=== PATIENT | male | born 1980 | race African-American/Black ===

== ENCOUNTER 2016-09-17 09:34 | Emergency (ER) | payer MEDICAID ==
[2016-09-17] MEDS ORDERED: ACETAMINOPHEN 325 MG TAB GT ONE (09:42)
[2016-09-17] MEDS ORDERED: MEROPENEM 500 MG in SODIUM CHL 0.9% 50ML MIN-BAG+ 50 ML IVPB ONE (10:45)
[2016-09-17] MEDS ORDERED: methylPREDNISolone SODIUM SUC 125 MG/2 ML VIAL IV ONE (10:46)
[2016-09-17] MEDS ORDERED: SODIUM CHLORIDE 0.9% 1000ML 500 ML IVS ONE (10:48)
--- NOTE | 2016-09-17 10:50 | RAD ---
PROCEDURE: XR CHEST 1 VIEW HISTORY: low pulse ox on vent COMPARISON: None TECHNIQUE: Single projection of the chest was done. FINDINGS: There is presence of a tracheostomy and a dual-chamber left-sided pacemaker. There is diffuse bilateral mid and lower lung zone infiltrates and probable tiny right-sided pleural effusion . There are no pneumothoraces The cardiomediastinal silhouette is unremarkable for patient's age and sex. IMPRESSION: There is diffuse bilateral mid and lower lung zone infiltrates and probable tiny right-sided pleural effusion, suspicious for underlying changes of volume overload. Superimposed infectious process is difficult to exclude . Electronically signed by: Cheko Zapien MD 09/17/2016 10:49 AM CDT Workstation: [id number]
[2016-09-17] MEDS ORDERED: SODIUM CHL 0.9% 50ML MIN-BAG+ 50 ML IVPB ONE (11:23)
[2016-09-17] MEDS ORDERED: MEROPENEM 500 MG VIAL IVPB ONE (11:23)
[2016-09-17] MEDS ORDERED: HYDROmorphone HCL INJ 2 MG/ML VIAL IV ONE ×2 (12:58→17:18)
--- NOTE | 2016-09-17 14:22 | CT ---
PROCEDURE: CTA Chest HISTORY: PE protocol, hypoxia, vent, ddimer Indication: Same as above Comparison: Six chest x-ray done on the same day Technique: CT of the chest was done with intravenous contrast followed by CT angiography of the pulmonary arteries. Coronal, Sagittal and 3D volumetric MIP reconstructions were generated from the acquired data. The patient was injected with contrast intravenously, without any documented immediate adverse reactions. This exam was performed according to our departmental dose-optimization program, which includes automated exposure control, adjustment of the mA and/or KV according to the patient's size and/or use of iterative reconstruction technique. FINDINGS: There is no visualization of filling defects in the main pulmonary trunk, main right and left pulmonary arteries or their lower order branches to suggest pulmonary embolism. The bilateral main pulmonary arteries are normal in caliber. There is no evidence of interventricular septal deviation or filling defects in the cardiac chambers. There is a tracheostomy. There is presence of large bilateral lower lobe infiltrate/atelectasis and presence of diffuse reticular nodular infiltrates in the remainder of the bilateral lung block. There is presence of trace bilateral pleural effusions. There are no discrete of multiple pathologically enlarged lymph nodes in the mediastinum Benign subcentimeter calcified granuloma is seen in the left lower lobe of the lung There are no pneumothoraces The trachea, bilateral mainstem bronchi and the bilateral main segmental bronchi are patent without any intraluminal mass lesions. There is no gross evidence of clinically significant thoracic aortic aneurysm or thoracic aortic dissection. There is no clinically significant pericardial effusion. The thoracic bony rib cage appears grossly unremarkable. Limited evaluation of the evaluated upper abdomen does not show any gross abnormalities. IMPRESSION: There is no pulmonary embolism There is presence of large bilateral lower lobe infiltrate/atelectasis and presence of diffuse reticular nodular infiltrates in the remainder of the bilateral lung block. There is presence of trace bilateral pleural effusions. There are no discrete of multiple pathologically enlarged lymph nodes in the mediastinum Electronically signed by: Cheko Zapien MD 09/17/2016 2:22 PM CDT Workstation: [facility]
[2016-09-17] MEDS ORDERED: SODIUM CHLORIDE 0.9% 250ML 250 ML ONE ×2 (14:46→17:00)
[2016-09-17] MEDS ORDERED: VANCOMYCIN HCL INJ 1,000 MG in SODIUM CHLORIDE 0.9% 250ML 250 ML IVPB ONE (15:42)
--- NOTE | 2016-09-17 15:54 | ED.PDOC ---
History of Present Illness - General Chief Complaint: Respiratory Problem Stated Complaint: decreased Oxygen saturation Time Seen by Provider: 09/17/16 09:36 Source: patient, EMS notes reviewed, group home records Exam Limitations: no limitations - History of Present Illness Initial Comments: the patient is a 36-year-old -Cym[place] male presenting to the emergency room secondary to relative hypoxia. the patient is a long-term vent patient with quadriplegia. He is alert and oriented and interactive. patient has had Rocephin and Levaquin for approximately the last week at his long-term care facility in treatment of a pneumonia. Over the last day apparently his oxygen requirements have been increasing. He has also developed a significant fever over the last 24 hours. the patient has been been feeling more tired and weak than normal. he is currently requiring around 60% FiO2 to maintain adequate oxygen saturation. the patient does have skin breakdown posteriorly. He has an area that is approximately 2.5 x 4 half inches over his upper sacrum that appears to be a stage II ulcer. He has a 1-1/2 by three-quarter inch area just below his left gluteal fold that is a stage II ulcer. he also has a similar sized area to his right gluteal fold. his left heel does have a 1-1/4 inch unruptured blister at this point. wounds were redressed here in the emergency room. Attention to : the wounds description given by me over the phone was in error. Timing/Duration: unsure Severity: moderate Improving Factors: nothing Worsening Factors: nothing Associated Symptoms: diaphoresis, fever/chills, loss of appetite, malaise, shortness of breath Allergies/Adverse Reactions: Allergies Codeine Adverse Reaction (Verified 09/17/16 09:50) Review of Systems - Review of Systems Constitutional: States: fever, malaise, weakness EENTM: States: no symptoms reported Respiratory: States: short of breath Cardiology: States: no symptoms reported Gastrointestinal/Abdominal: States: no symptoms reported Genitourinary: States: no symptoms reported Musculoskeletal: States: no symptoms reported - hronic changes only Skin: States: other - decubitus ulcers Neurological: States: see HPI All other Systems: No Change from Baseline Past Medical History (General) - Patient Medical History Hx Cardiac Disorders: Yes - A-fib - Social History Hx Tobacco Use: No Hx Alcohol Use: No Hx Substance Use: No Hx Substance Use Treatment: No Hx Depression: No - Activities of Daily Living Long Term/Assisted Living (if applicable):: [facility] - Female History Patient is a Female of Child Bearing Age (10 -59 yrs old): No Patient : No Family Medical History - Family History Mother Family History: Unknown Physical Exam - Physical Exam General Appearance: Alert, No apparent distress Eye Exam: bilateral normal Ears, Nose, Throat: hearing grossly normal, normal ENT inspection - Gold teeth, normal pharynx - mouth is mildly dry Neck: supple - racheostomy is in place. Respiratory: crackles - ilateral bases with decreased breath sounds Cardiovascular/Chest: normal peripheral pulses, no edema, tachycardia - sinus tachycardiaaccording to telemetry Peripheral Pulses: radial,right: 2+, radial,left: 2+, dorsalis pedis,right: 2+, dorsalis pedis,left: 2+ Gastrointestinal/Abdominal: non tender, soft Rectal Exam: other - poor tone. Stool is present in the vault. Back Exam: other - scarring from previous ulcers. Extremity: no pedal edema, normal capillary refill, other - asting from quadriplegia. Neurologic: alert, normal mood/affect, oriented x 3 Skin Exam: normal color, other - see history of present illness Comments: Vital Signs - 24 hr 09/17/16 09/17/16 09/17/16 09:35 09:49 09:54 Temperature 101.2 F H Pulse Rate [ 112 H pulse ox] Respiratory 18 18 18 Rate Respiratory 18 Rate [Volume Control Data] Blood Pressure 87/46 [Left Arm] O2 Sat by Pulse 97 97 Oximetry 09/17/16 09/17/16 09/17/16 10:48 11:00 11:48 Temperature 99.8 F H Pulse Rate [ 119 H 117 H pulse ox] Respiratory 18 18 Rate Respiratory Rate [Volume Control Data] Blood Pressure 88/55 80/42 [Left Arm] O2 Sat by Pulse 98 99 96 Oximetry 09/17/16 09/17/16 09/17/16 14:55 15:03 15:18 Temperature 97.8 F 96.9 F L 96.4 F L Pulse Rate [ 96 H 99 H 73 pulse ox] Respiratory 14 14 14 Rate Respiratory Rate [Volume Control Data] Blood Pressure 114/63 124/74 150/89 [Left Arm] O2 Sat by Pulse 96 99 99 Oximetry Progress - Progress Progress: 09/17/16 16:05 he patient is a 36-year-old -Cym[place] male that is a quadriplegic and ventilator dependent presenting with bilateral lower lung ventilator associated pneumonia having failed outpatient treatment with Rocephin and Levaquin. The patient is being transferred for higher level of care. Blood and sputum cultures have been performed. The patient is being started on meropenem and vancomycin. Additionally the patient has anemia of an unknown source. Given his shortness of breath, current infection burden and hypoxia issues we are proceeding with his first unit of packed red blood cells. he patient has received a dose of Tylenol in a small dose of Solu-Medrol prior to transfusion. Decubitus wounds were redressed. the patient is tachycardic but looking back over his vitals for the last couple of weeks, it appears his baseline heart rate is around 100. the patient is mentating well. We are transferring for higher level of care. Dr Hood's help is greatly appreciated. - Results/Orders Results/Orders: 09/17/16 09:37 Telemetry .CONTINUOUS 09/17/16 09:43 SPUTUM CULTURE Stat 09/17/16 10:25 BLOOD CULTURE Stat 09/17/16 10:37 URINE CULTURE W/COLONY COUNT Stat 09/17/16 10:48 Hold Metformin x 48Hrs [id number] 09/17/16 15:42 Vancomycin HCl Inj 1,000 mg Sodium Chloride 0.9% 250Ml [NS 250ml] 250 ml IVPB ONCE Laboratory Results - last 24 hr 09/17/16 09/17/16 09/17/16 10:25 10:25 10:25 WBC 25.2 H* RBC 2.46 L Hgb 6.9 L* Hct 21.4 L MCV 87.0 MCH 28.0 MCHC 32.4 L RDW 18.6 H Plt Count 372 MPV 8.4 Absolute Neuts (auto) 23.80 H Absolute Lymphs (auto) 0.50 L Absolute Monos (auto) 0.80 Absolute Eos (auto) 0.00 Absolute Basos (auto) 0.00 Neutrophils % 94.6 H Neutrophils % (Manual) 42.0 Lymphocytes % 2.2 L Lymphocytes % (Manual) 1.0 Monocytes % 3.1 Monocytes % (Manual) 0.0 Eosinophils % 0.0 L Basophils % 0.1 Band Neutrophils 55.0 Metamyelocytes 2.0 Hypochromia 2+ Platelet Estimate Normal Anisocytosis 2+ PT 16.8 H INR 1.490 PTT (SP) 28.7 D-Dimer, Quantitative 2059 H* Sodium 131 L Potassium 4.0 Chloride 88 L Carbon Dioxide 30 Anion Gap 17.0 BUN 41 H Creatinine 0.47 L BUN/Creatinine Ratio 87.2 H Random Glucose 126 H Serum Osmolality 274.3 L Lactic Acid Calcium 9.5 Magnesium 2.0 Total Bilirubin 0.6 AST 27 ALT 56 Alkaline Phosphatase 95 Creatine Kinase 29 L CK-MB (CK-2) 1.1 CK-MB (CK-2) % Not Reportable Troponin I < 0.02 B-Natriuretic Peptide 60.3 Serum Total Protein 7.8 Albumin 2.8 L Globulin 5.0 H Albumin/Globulin Ratio 0.6 L Urine Color Urine Appearance Urine pH Ur Specific Tribune Urine Protein Urine Glucose (UA) Urine Ketones Urine Blood Urine Nitrite Urine Bilirubin Urine Urobilinogen Ur Leukocyte Esterase Urine RBC Urine WBC Ur Epithelial Cells Amorphous Sediment Urine Bacteria Stool Occult Blood Patient ABO/Rh Antibody Screen Crossmatch 09/17/16 09/17/16 09/17/16 10:25 10:37 10:45 WBC RBC Hgb Hct MCV MCH MCHC RDW Plt Count MPV Absolute Neuts (auto) Absolute Lymphs (auto) Absolute Monos (auto) Absolute Eos (auto) Absolute Basos (auto) Neutrophils % Neutrophils % (Manual) Lymphocytes % Lymphocytes % (Manual) Monocytes % Monocytes % (Manual) Eosinophils % Basophils % Band Neutrophils Metamyelocytes Hypochromia Platelet Estimate Anisocytosis PT INR PTT (SP) D-Dimer, Quantitative Sodium Potassium Chloride Carbon Dioxide Anion Gap BUN Creatinine BUN/Creatinine Ratio Random Glucose Serum Osmolality Lactic Acid 1.6 Calcium Magnesium Total Bilirubin AST ALT Alkaline Phosphatase Creatine Kinase CK-MB (CK-2) CK-MB (CK-2) % Troponin I B-Natriuretic Peptide Serum Total Protein Albumin Globulin Albumin/Globulin Ratio Urine Color Yellow Urine Appearance Clear Urine pH 5.5 Ur Specific Tribune <= 1.005 Urine Protein Negative Urine Glucose (UA) Negative Urine Ketones Negative Urine Blood Negative Urine Nitrite Negative Urine Bilirubin Negative Urine Urobilinogen 0.2 Ur Leukocyte Esterase Trace H Urine RBC 1-3 Urine WBC 10-20 H Ur Epithelial Cells 0 Amorphous Sediment Trace Urine Bacteria 3+ H Stool Occult Blood Patient ABO/Rh O POSITIVE Antibody Screen Negative Crossmatch See Detail 09/17/16 13:54 WBC RBC Hgb Hct MCV MCH MCHC RDW Plt Count MPV Absolute Neuts (auto) Absolute Lymphs (auto) Absolute Monos (auto) Absolute Eos (auto) Absolute Basos (auto) Neutrophils % Neutrophils % (Manual) Lymphocytes % Lymphocytes % (Manual) Monocytes % Monocytes % (Manual) Eosinophils % Basophils % Band Neutrophils Metamyelocytes Hypochromia Platelet Estimate Anisocytosis PT INR PTT (SP) D-Dimer, Quantitative Sodium Potassium Chloride Carbon Dioxide Anion Gap BUN Creatinine BUN/Creatinine Ratio Random Glucose Serum Osmolality Lactic Acid Calcium Magnesium Total Bilirubin AST ALT Alkaline Phosphatase Creatine Kinase CK-MB (CK-2) CK-MB (CK-2) % Troponin I B-Natriuretic Peptide Serum Total Protein Albumin Globulin Albumin/Globulin Ratio Urine Color Urine Appearance Urine pH Ur Specific Tribune Urine Protein Urine Glucose (UA) Urine Ketones Urine Blood Urine Nitrite Urine Bilirubin Urine Urobilinogen Ur Leukocyte Esterase Urine RBC Urine WBC Ur Epithelial Cells Amorphous Sediment Urine Bacteria Stool Occult Blood Negative Patient ABO/Rh Antibody Screen Crossmatch chest x-ray shows bilateral lower infiltrates. CT angiogram of the chest shows no evidence of pulmonary embolus. He does have large bilateral lower lobe infiltrates and mild diffuse reticular nodular infiltrates and the remainder of bilateral lung block. Very small effusions. Departure - Departure Clinical Impression: Pneumonia, ventilator associated Disposition: Transfer to Hospital Condition: Serious Referrals: GENTRY ULRICH [Primary Care Provider] - 1-2 Weeks Transfer to Outside Facility - Transfer Information Accepting Provider:: DR Hood Accepting Facility: [facility] Reason for Transfer: specialized care not available
[2016-09-17 16:30] VITALS: BP 151/102; TEMP 95.1
[2016-09-17] MEDS ORDERED: VANCOMYCIN HCL INJ 1,000 MG VIAL IVPB ONE (17:00)
[2016-09-17] MEDS: IPRATROPIUM/ALBUTEROL 3 ML VIAL NEB ONE ×2 (17:12→17:13)
[2016-09-17 17:49] VITALS: O2SAT 96
== END 2016-09-17 17:30 | disposition short-term general hospital (02) ==
LOC: ER 09:34
DX: J95.851 Ventilator associated pneumonia (principal); G82.50 Quadriplegia, unspecified; I48.91 Unspecified atrial fibrillation; L89.152 Pressure ulcer of sacral region, stage 2; L89.322 Pressure ulcer of left buttock, stage 2; L89.312 Pressure ulcer of right buttock, stage 2; L89.629 Pressure ulcer of left heel, unspecified stage; Z99.11 Dependence on respirator [ventilator] status; Z88.6 Allergy status to analgesic agent
CPT/HCPCS: 36415; 71010; 71275; 80053; 81001; 82270; 82550; 82553; 83605; 83735; 83880; 84484; 85025; 85379; 85610; 85730; 86850; 86900; 86901; 86922; 87040; 87086; 94002; 94640; 94770; J1170; J2185; J2930; J3370; J7030; J7050; J7620; P9016

== ENCOUNTER 2016-09-21 23:17 | Emergency (ER) | payer MEDICAID ==
[2016-09-21] MEDS ORDERED: HYDROmorphone HCL INJ 2 MG/ML VIAL IV ONE (23:22)
[2016-09-22] MEDS ORDERED: AMIODARONE HCL 200 MG TAB GT ONE (00:01)
[2016-09-22] MEDS ORDERED: METHOCARBAMOL 750 MG TAB GT ONE (00:01)
[2016-09-22] MEDS ORDERED: ALPRAZolam 0.25 MG TAB GT ONE (00:01)
[2016-09-22] MEDS ORDERED: IPRATROPIUM/ALBUTEROL 3 ML VIAL NEB ONE ×2 (00:08→03:40)
--- NOTE | 2016-09-22 00:33 | RAD ---
EXAM: Single view chest. INDICATION: Pneumonia. COMPARISON: Chest x-ray: 09/17/2016. FINDINGS: There are diffuse interstitial and airspace opacities, worse along the lung bases. Bilateral pleural effusions are present. The heart size is stable with a left chest wall pacemaker in place. There is no pneumothorax. A tracheostomy tube is in place. Postsurgical changes of the cervical spine are partially visualized. IMPRESSION: Diffuse interstitial and airspace opacities, likely representing pulmonary edema and/or pneumonia Electronically signed by: Biju Church MD 09/22/2016 12:33 AM CDT Workstation: [id number]
[2016-09-22] MEDS ORDERED: HYDROmorphone HCL INJ 2 MG/ML VIAL IV ONE (01:27)
--- NOTE | 2016-09-22 02:16 | ED.PDOC ---
History of Present Illness - General Source: patient Exam Limitations: clinical condition - History of Present Illness Initial Comments: The patient is a 36-year-old -E[place]ian male presenting to the emergency room from his long-term care facility. The patient was sent back from [place] to the [facility]. He had been treated for a ventilator associated pneumonia. The patient had also been treated for atrial fibrillation with rapid ventricular rate with cardioversion and had been placed on amiodarone. He is currently also on moxifloxacin for an antibiotic for pneumonia. Sepsis appears to have resolved. The patient was sent here from the [facility] immediately upon arrival secondary to swelling of the left upper extremity. They're concern was for a DVT. The patient was sent immediately in spite of being informed that we do not have ultrasound capability in the middle of the night. There are no new symptoms of a pulmonary embolus. The patient had previously had peripheral IVs in the upper extremities which is obvious. The patient himself reports that the swelling started a couple of days ago. The patient is feeling significantly better than when he was sent out earlier in the week for the pneumonia. The patient's ventilator settings have been reduced with treatment of the pneumonia. In general he does look better thanwhat I saw him earlier in the week. Timing/Duration: 24 hours Severity: mild Improving Factors: nothing Worsening Factors: nothing Associated Symptoms: cough <Ciro Goyal - Last Filed: 09/22/16 06:44> <Teetee Lopes - Last Filed: 09/22/16 09:46> - General Chief Complaint: General Stated Complaint: arm swelling possibe DVT to left arm Time Seen by Provider: 09/21/16 23:22 - History of Present Illness Allergies/Adverse Reactions: Allergies Codeine Adverse Reaction (Verified 09/17/16 09:50) Review of Systems - Review of Systems Constitutional: States: malaise EENTM: States: no symptoms reported Respiratory: States: cough, short of breath - mild Cardiology: States: no symptoms reported Gastrointestinal/Abdominal: States: no symptoms reported Genitourinary: States: no symptoms reported Musculoskeletal: States: no symptoms reported - hronic low back pain issues Skin: States: no symptoms reported - chronic sacral decubitus ulcer and heel ulcer Neurological: States: no symptoms reported - hronic changes including his quadriplegia Endocrine: States: excessive sweating - primarily with withdrawal from his opiates All other Systems: No Change from Baseline <Ciro Goyal - Last Filed: 09/22/16 06:44> Past Medical History (General) - Patient Medical History Hx Cardiac Disorders: Yes - A-fib - Vaccination History Hx Tetanus, Diphtheria Vaccination: - unknown Hx Influenza Vaccination: - unknown Hx Pneumococcal Vaccination: - unknown - Social History Hx Tobacco Use: No Hx Alcohol Use: No Hx Substance Use: No Hx Substance Use Treatment: No Hx Depression: No - Activities of Daily Living Senior Care/Assisted Living (if applicable):: [facility] - Female History Patient : No - Triage Comment ED Triage Comment: shelter states pt has just returned from [facility] and c/o left arm pain and swelling that has gotten worse throughout the day. <Ciro Goyal - Last Filed: 09/22/16 06:44> Family Medical History - Family History Mother Family History: Unknown <Ciro Goyal - Last Filed: 09/22/16 06:44> Physical Exam - Physical Exam General Appearance: Alert, Comfortable, No apparent distress Eye Exam: bilateral normal Ears, Nose, Throat: hearing grossly normal, normal ENT inspection - gold teeth Neck: non-tender, full range of motion, supple, other - tracheostomy is in place Respiratory: other - coarse breath sounds at bilateral bases. Significantly better air movement than earlier in the week. 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, alert, normal mood/affect, oriented x 3, other - quadriplegic Skin Exam: other - sacral and heel ulcers present Comments: Vital Signs - 24 hr 09/21/16 09/21/16 09/22/16 23:20 23:50 00:48 Temperature 98.6 F 98.2 F Pulse Rate [ 87 91 H monitor] Respiratory 18 16 20 Rate Blood Pressure 92/52 [Right Arm] O2 Sat by Pulse 94 L Oximetry 09/22/16 01:18 Temperature Pulse Rate [ 94 H monitor] Respiratory 20 Rate Blood Pressure [Right Arm] O2 Sat by Pulse 95 Oximetry <Ciro Goyal - Last Filed: 09/22/16 06:44> Progress - Progress Progress: 09/22/16 02:19 The patient is a 36-year-old -E[place] male presenting primarily due to left upper extremity swelling after coming back from the hospital in [place]. I do suspect that this is simply from IV infiltration at that hospital. We are awaiting venous ultrasound in the morning. The patient's respiratory status has improved since his last visit. PM medications are being given. Continue monitoring. - Results/Orders Results/Orders: Laboratory Tests 09/21/16 09/21/16 09/21/16 23:22 23:23 23:23 WBC 21.3 H* RBC 3.43 L Hgb 9.5 L Hct 30.3 L MCV 88.5 MCH 27.6 MCHC 31.3 L RDW 17.2 H Plt Count 447 H MPV 8.1 Absolute Neuts (auto) 17.10 H Absolute Lymphs (auto) 2.40 Absolute Monos (auto) 1.50 H Absolute Eos (auto) 0.20 Absolute Basos (auto) 0.10 Neutrophils % 80.1 H Neutrophils % (Manual) 64.0 Lymphocytes % 11.5 L Lymphocytes % (Manual) 17.0 Monocytes % 7.1 Monocytes % (Manual) 4.0 Eosinophils % 0.8 L Basophils % 0.5 Band Neutrophils 10.0 Eosinophils 2.0 Metamyelocytes 3.0 Hypochromia 2+ Platelet Estimate Normal Polychromasia 2+ Anisocytosis 3+ PT 14.6 H INR 1.300 PTT (SP) 29.0 D-Dimer, Quantitative 3001 H* Sodium 138 Potassium 4.4 Chloride 97 L Carbon Dioxide 31 Anion Gap 14.4 BUN 13 Creatinine < 0.40 L BUN/Creatinine Ratio 32.0 H Random Glucose 92 Serum Osmolality 275.4 Calcium 9.4 Magnesium Total Bilirubin 0.6 AST 32 ALT 91 H Alkaline Phosphatase 82 Creatine Kinase 43 CK-MB (CK-2) 1.8 CK-MB (CK-2) % Not Reportable Troponin I 0.02 B-Natriuretic Peptide 49.1 Serum Total Protein 7.6 Albumin 2.6 L Globulin 5.0 H Albumin/Globulin Ratio 0.5 L 09/21/16 23:23 WBC RBC Hgb Hct MCV MCH MCHC RDW Plt Count MPV Absolute Neuts (auto) Absolute Lymphs (auto) Absolute Monos (auto) Absolute Eos (auto) Absolute Basos (auto) Neutrophils % Neutrophils % (Manual) Lymphocytes % Lymphocytes % (Manual) Monocytes % Monocytes % (Manual) Eosinophils % Basophils % Band Neutrophils Eosinophils Metamyelocytes Hypochromia Platelet Estimate Polychromasia Anisocytosis PT INR PTT (SP) D-Dimer, Quantitative Sodium Potassium Chloride Carbon Dioxide Anion Gap BUN Creatinine BUN/Creatinine Ratio Random Glucose Serum Osmolality Calcium Magnesium 1.8 Total Bilirubin AST ALT Alkaline Phosphatase Creatine Kinase CK-MB (CK-2) CK-MB (CK-2) % Troponin I B-Natriuretic Peptide Serum Total Protein Albumin Globulin Albumin/Globulin Ratio chest x-ray shows persistent infiltrates as would be expected in this timeframe. <Ciro Goyal - Last Filed: 09/22/16 06:44> - Progress Progress: 09/22/16 09:45 ultrasound of left upper extremity shows no evidence of dvt. Will plan to d/c back to [facility]. <Teetee Lopes - Last Filed: 09/22/16 09:46> Departure <Ciro Goyal - Last Filed: 09/22/16 06:44> - Departure Time of Disposition: 09:45 Diet: resume usual diet <Teetee Lopes - Last Filed: 09/22/16 09:46> - Departure Clinical Impression: Edema Qualifiers: Edema type: unspecified Disposition: Discharge to SNF Condition: Fair Instructions: DI for Peripheral Edema, Unilateral
[2016-09-22 03:44] VITALS: TEMP 98.4
[2016-09-22] MEDS ORDERED: HYDROcodone 7.5MG/APAP 325MG 1 EA TAB PO ONE (04:01)
[2016-09-22] MEDS ORDERED: HYDROmorphone HCL 2 MG TAB ONE (06:20)
[2016-09-22] MEDS ORDERED: HYDROmorphone HCL 2 MG TAB PO ONE (06:21)
[2016-09-22] MEDS ORDERED: HYDROcodone 10MG/APAP 325MG 1 EA TAB PO ONE (09:32)
--- NOTE | 2016-09-22 09:41 | US ---
Study: Left upper extremity venous Doppler sonogram. Indication: swelling 2 days Technical: Multiplanar grayscale and Doppler sonographic images of the deep veins of the left upper extremity obtained. Findings: There is no sonographic evidence of deep venous thrombosis. The deep veins of the left upper extremity compress normally and have appropriate duplex waveforms. Normal flow augmentation is noted as well. Conclusion: 1. No sonographic evidence of deep venous thrombosis of the left upper extremity. Electronically signed by: Fermin Hanks MD 09/22/2016 9:40 AM CDT
[2016-09-22] MEDS ORDERED: ALPRAZolam 0.25 MG TAB PO ONE (10:06)
[2016-09-22 10:32] VITALS: BP 94/52; O2SAT 100
== END 2016-09-22 10:32 ==
LOC: ER 23:17
DX: R60.0 Localized edema (principal); I48.91 Unspecified atrial fibrillation; Z99.11 Dependence on respirator [ventilator] status; Z88.6 Allergy status to analgesic agent
CPT/HCPCS: 36415; 71010; 80053; 82550; 82553; 83735; 83880; 84484; 85025; 85379; 85610; 85730; 93971; 94002; 94003; 94640; 94770; J1170; J7620

== ENCOUNTER 2016-10-07 21:35 | Emergency (ER) | payer MEDICAID ==
--- NOTE | 2016-10-07 22:14 | RAD ---
EXAM: Chest,1 View CLINICAL INDICATION: 36-year-old male with decreased oxygen saturation. TECHNIQUE: Single view, AP portable chest was obtained. COMPARISON: 09/22/2016. FINDINGS: Stable cardiac and mediastinal silhouette. Heart size is normal. Pacemaker device overlies and obscures portions of the the LEFT hemithorax with leads intact at the level of the battery pack, stable in course and termination. Extensive interstitial and airspace opacification concerning for edema/ARDS, multifocal pneumonia or drug reaction the correct clinical setting. No gross pneumothoraces. Small bilateral pleural effusion. Tracheostomy tube terminates at the level of the thoracic inlet. The visualized bones are within normal limits. IMPRESSION: Extensive interstitial and airspace opacification concerning for edema/ARDS, multifocal pneumonia or drug reaction the correct clinical setting. Small bilateral pleural effusion. Please correlate with patient clinical findings and follow-up for resolution. Electronically signed by: Aruna Velasco MD 10/07/2016 10:13 PM CDT Workstation: [id number]
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
[2016-10-08] MEDS ORDERED: MORPHINE SULFATE INJ 10 MG/ML VIAL IV ONE (04:21)
[2016-10-08] MEDS ORDERED: HYDROmorphone HCL INJ 2 MG/ML VIAL IV ONE ×3 (04:25→08:28)
[2016-10-08] MEDS ORDERED: PIPERACILLIN/TAZOBACTAM 3.375 GM in SODIUM CHLORIDE 0.9% 100ML 100 ML IVPB ONE (04:32)
[2016-10-08] MEDS ORDERED: PIPERACILLIN/TAZOBACTAM 3.375 GM VIAL IVPB ONE (04:36)
[2016-10-08] MEDS ORDERED: SODIUM CHLORIDE 0.9% 100ML 100 ML IVPB ONE ×2 (04:37→05:31)
[2016-10-08] MEDS ORDERED: HYDROmorphone HCL INJ 2 MG/ML VIAL ONE (05:56)
[2016-10-08] MEDS ORDERED: VANCOMYCIN HCL INJ 1,000 MG in SODIUM CHLORIDE 0.9% 250ML 250 ML IVPB ONE (06:00)
[2016-10-08] MEDS ORDERED: VANCOMYCIN HCL INJ 1,000 MG VIAL IVPB ONE (06:18)
[2016-10-08] MEDS ORDERED: SODIUM CHLORIDE 0.9% 250ML 250 ML ONE (06:18)
[2016-10-08 08:51] VITALS: BP 117/62; TEMP 98.3; O2SAT 98
== END 2016-10-08 08:52 | disposition short-term general hospital (02) ==
LOC: ER 21:35
DX: J95.851 Ventilator associated pneumonia (principal); J96.11 Chronic respiratory failure with hypoxia; I48.2 Chronic atrial fibrillation; G82.50 Quadriplegia, unspecified; Z88.6 Allergy status to analgesic agent; Z79.899 Other long term (current) drug therapy; Z79.82 Long term (current) use of aspirin; Z79.02 Long term (current) use of antithrombotics/antiplatelets; Z93.1 Gastrostomy status; Z95.0 Presence of cardiac pacemaker; Z99.11 Dependence on respirator [ventilator] status; S14.109S Unspecified injury at unspecified level of cervical spinal cord, sequela; V89.2XXS Person injured in unspecified motor-vehicle accident, traffic, sequela
CPT/HCPCS: 36415; 36600; 71010; 80048; 82550; 82553; 82803; 82805; 83880; 84484; 85025; 87040; 93005; 94002; J1170; J2270; J2543; J3370; J7050

== ENCOUNTER 2016-10-19 15:49 | Emergency (ER) | payer MEDICAID ==
[2016-10-19] MEDS ORDERED: LIDOCAINE 2% UROJET 20 MG/ML SYG TOP ONE (16:00)
[2016-10-19] MEDS ORDERED: MORPHINE SULFATE INJ 10 MG/ML VIAL IM ONE (16:00)
[2016-10-19 16:08] VITALS: TEMP 100
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
[2016-10-19] MEDS ORDERED: ACETAMINOPHEN W/COD #3 TAB 1 EA TAB PO ONE (17:14)
[2016-10-19] MEDS ORDERED: diphenhydrAMINE HCL 12.5 MG/5 ML UD PO ONE (17:25)
[2016-10-19] MEDS ORDERED: HYDROmorphone HCL 2 MG TAB PO ONE (18:25)
[2016-10-19 18:37] VITALS: O2SAT 95
[2016-10-19 18:58] VITALS: BP 87/51
== END 2016-10-19 18:58 ==
LOC: ER 15:49
DX: S37.30XA Unspecified injury of urethra, initial encounter (principal); I48.2 Chronic atrial fibrillation; Z99.11 Dependence on respirator [ventilator] status; Z95.0 Presence of cardiac pacemaker; Z88.6 Allergy status to analgesic agent; Z79.899 Other long term (current) drug therapy; Z79.02 Long term (current) use of antithrombotics/antiplatelets; Z79.82 Long term (current) use of aspirin; X58.XXXA Exposure to other specified factors, initial encounter; Y92.129 Unspecified place in nursing home as the place of occurrence of the external cause
CPT/HCPCS: 81001; 87086; 94002; J2270; Q0163

== ENCOUNTER 2016-10-27 17:42 | Emergency (ER) | payer MEDICAID ==
--- NOTE | 2016-10-27 18:13 | RAD ---
EXAM DESCRIPTION: Chest,1 View CLINICAL HISTORY: 36 years Male s/p code COMPARISON: 10/07/2016 FINDINGS: Tracheostomy tube in place. Postsurgical changes in the cervical spine. Dual-lead pacemaker in unchanged position. Cardiac size is within normal limits. There are bilateral pulmonary infiltrates which appear slightly improved over the previous study. Suspect bilateral effusions. No pneumothorax is noted IMPRESSION: Bilateral mixed alveolar and interstitial infiltrates which may reflect pulmonary edema. This appears improved over the previous study Suspect bilateral effusions Electronically signed by: Mariia Norris 10/27/2016 6:12 PM CDT
[2016-10-27] MEDS ORDERED: FLUCONAZOLE 100 MG TAB GT ONE (18:41)
[2016-10-27] MEDS ORDERED: HYDROmorphone HCL INJ 2 MG/ML VIAL IV ONE ×2 (19:17→22:45)
[2016-10-27] MEDS ORDERED: ALPRAZolam 0.25 MG TAB GT ONE (19:18)
[2016-10-27] MEDS ORDERED: AMIODARONE HCL 200 MG TAB GT ONE (19:18)
[2016-10-27] MEDS ORDERED: BACLOFEN 10 MG TAB PO ONE (19:18)
[2016-10-27] MEDS ORDERED: IPRATROPIUM/ALBUTEROL 3 ML VIAL NEB ONE (19:19)
[2016-10-27] MEDS ORDERED: PREGABALIN 75 MG CAP PO ONE (19:19)
[2016-10-27 19:28] VITALS: O2SAT 99
--- NOTE | 2016-10-27 22:32 | ED.PDOC ---
History of Present Illness - General Chief Complaint: Cardiac Respiratory Arrest Stated Complaint: coded at NH Time Seen by Provider: 10/27/16 17:53 Source: patient Exam Limitations: no limitations - History of Present Illness Initial Comments: The patient is a 36-year-old -Thai male that is a quadriplegic and ventilator dependent. He is a resident of a long-term care facility. EMS was called on the patient due to staph starting CPR on the patient. Upon EMSs arrival the patient was alert and interacting with them. He was in no distress. He was not wanting to come to the hospital. He is oriented. He does make his own decisions primarily. He had been feeling fine prior. What he remembers before waking back up was that he was turned over on his right side having his decubitus ulcer cleaned. He reports that he does not breathe very well at all on his right side. He believes that he passed out due to the shortness of breath and that is when a code was called on him. The patient was in normal sinus rhythm upon arrival of EMS. He was oxygenating well. He was interacting well. The patient has done well since his arrival here at the emergency room. He was feeling fine prior to the event otherwise. Timing/Duration: momentarily Severity: severe Improving Factors: other Worsening Factors: nothing Associated Symptoms: denies symptoms Allergies/Adverse Reactions: Allergies Codeine Adverse Reaction (Verified 09/17/16 09:50) Home Medications: Ambulatory Orders ALPRAZolam [Xanax] 0.5 mg GT Q8HR PRN 10/08/16 Acetaminophen W/ Codeine [Tylenol w/Codeine 300-30 mg] 1 tab PO QID PRN Acetylcysteine 10 % INH BID PRN 10/08/16 Amiodarone HCl 200 mg GT BID 10/08/16 Aspirin [Aspirin EC Low Dose] 81 mg GT DAILY 10/08/16 Baclofen 10 mg GT QID 10/08/16 Bisacodyl 10 mg AK DAILY PRN 10/08/16 Bisacodyl 10 mg AK DELISA-OTH-DAY 10/08/16 Calcium Carbonate-Cholecalcife [Calcium 600 + D 600-200 mg-Unit] 1 tab GT BID Clopidogrel Bisulfate [Plavix] 75 mg GT DAILY 10/08/16 Diphenhydramine HCl 12.5 mg GT Q6HR PRN 10/08/16 Famotidine 20 mg GT BID 10/08/16 Hydromorphone HCl [Dilaudid-5] 1 mg GT Q4HR PRN 10/08/16 Ibuprofen [Goodsense Ibuprofen] 600 mg GT Q6HR 10/08/16 Ipratropium/Albuterol [Duoneb] 3 ml INH Q4HR 10/08/16 Pregabalin [Lyrica] 75 mg GT BID 10/08/16 Sennosides-Docusate Sodium [Senna/Docusate Sodium] 1 tab GT BID 10/08/16 Ascorbic Acid [Vitamin C] 500 mg GT BID 10/19/16 Balsam [place] Oil [Venelex] 1 applic TOP BID 10/19/16 Methocarbamol 750 mg PO QID 10/19/16 Nutritional Supplements [Arginaid] 1 teja PO BID 10/19/16 Polyvinyl Alcohol [Artificial Tears] 2 applic BOTH_EYES QID PRN 10/19/16 Review of Systems - Review of Systems Constitutional: States: malaise EENTM: States: no symptoms reported Respiratory: States: no symptoms reported Cardiology: States: syncope Gastrointestinal/Abdominal: States: no symptoms reported Genitourinary: States: no symptoms reported Musculoskeletal: States: no symptoms reported Skin: States: see HPI - no new Neurological: States: no symptoms reported - no new symptoms Endocrine: States: no symptoms reported Hematologic/Lymphatic: States: no symptoms reported All other Systems: No Change from Baseline Past Medical History (General) - Patient Medical History Hx Stroke: No Hx Cardiac Disorders: Yes - Chronic A-fib, Pacemaker Hx Congestive Heart Failure: No Hx Pacemaker: Yes Hx Hypertension: No Hx Diabetes: No - Vaccination History Hx Tetanus, Diphtheria Vaccination: - unknown Hx Influenza Vaccination: - unknown Hx Pneumococcal Vaccination: - unknown - Social History Hx Tobacco Use: No Hx Chewing Tobacco Use: No Hx Alcohol Use: No Hx Substance Use: No Hx Substance Use Treatment: No Hx Depression: No Hx Physical Abuse: No Hx Emotional Abuse: No Hx Suspected Abuse: No - Activities of Daily Living [facility] (if applicable[facility]:: [facility] - Female History Patient : No Family Medical History - Family History Mother Family History: Unknown Physical Exam - Physical Exam General Appearance: Alert, Comfortable, No apparent distress Eye Exam: bilateral normal Ears, Nose, Throat: hearing grossly normal, normal ENT inspection - he patient does have teeth Neck: non-tender, supple Respiratory: chest non-tender, no accessory muscle use, other - the patient does have chronic fine rales at bilateral bases. His lung block are actually significantly clearer than I have heard them in several months. Cardiovascular/Chest: normal peripheral pulses, regular rate, rhythm, no edema Peripheral Pulses: radial,right: 2+, radial,left: 2+, dorsalis pedis,right: 2+, dorsalis pedis,left: 2+ Gastrointestinal/Abdominal: non tender - G-tube is in place, soft Rectal Exam: deferred, other - he patient doees have a significant decubitus ulcer. 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 Skin Exam: normal color - decubitus sores as above Comments: Vital Signs - 24 hr 10/27/16 10/27/16 10/27/16 17:43 17:46 19:13 Temperature 98.6 F Pulse Rate Pulse Rate [ 48 L 93 H Right Brachial] Respiratory 14 18 Rate Respiratory 33 H Rate [Volume Control Data] Blood Pressure 106/63 111/76 [Right Arm] O2 Sat by Pulse 95 99 Oximetry 10/27/16 10/27/16 10/27/16 19:30 19:40 20:09 Temperature Pulse Rate 92 H 92 H Pulse Rate [ 88 Right Brachial] Respiratory 18 18 Rate Respiratory 18 Rate [Volume Control Data] Blood Pressure 109/69 [Right Arm] O2 Sat by Pulse 99 99 Oximetry 10/27/16 10/27/16 20:12 21:45 Temperature Pulse Rate Pulse Rate [ 88 Right Brachial] Respiratory Rate Respiratory 18 Rate [Volume Control Data] Blood Pressure [Right Arm] O2 Sat by Pulse Oximetry Progress - Progress Progress: 10/27/16 22:35 the patient is a 36-year-old -Thai male quadriplegic brought in after being coded at long-term care facility. it is thought that the patient went down after being turned on his right side where he could not breathe as well while he was receiving wound care. The patient has done well here. He has remained in normal sinus rhythm. Cardiac enzymes are negative. He is alert and pleasant. Laboratory work appears to be near baseline for the patient. He may have a small urinary tract infection. He was given a dose of Diflucan for budding yeast in the urine. Urine culture can be followed. No antibiotics are going to be dosed otherwise at this time. The patient has agreed to this plan. ER warnings were given for any worsening. Continue current medications and wound care otherwise. Consider turning the patient to the opposite side for wound care. - Results/Orders Results/Orders: Laboratory Tests 10/27/16 10/27/16 10/27/16 17:08 17:08 17:08 WBC 23.0 H* RBC 3.49 L Hgb 9.4 L Hct 30.1 L MCV 86.1 MCH 26.9 L MCHC 31.4 L RDW 18.1 H Plt Count 406 H MPV 7.8 Absolute Neuts (auto) Not Reportable Absolute Lymphs (auto) Not Reportable Absolute Monos (auto) Not Reportable Absolute Eos (auto) Not Reportable Neutrophils % Not Reportable Neutrophils % (Manual) 79.0 Lymphocytes % Not Reportable Lymphocytes % (Manual) 11.0 Monocytes % Not Reportable Monocytes % (Manual) 4.0 Eosinophils % Not Reportable Basophils % Not Reportable Band Neutrophils 6.0 Platelet Estimate Increased Normal RBC Morphology Normal rbc morph PT 16.4 H INR 1.460 PTT (SP) 31.1 Sodium 137 Potassium 4.0 Chloride 96 L Carbon Dioxide 30 Anion Gap 15.0 BUN 10 Creatinine < 0.40 L BUN/Creatinine Ratio 25.0 H Random Glucose 119 H Serum Osmolality 274.0 L Calcium 9.1 Magnesium 2.2 Total Bilirubin 0.4 AST 22 ALT 43 Alkaline Phosphatase 96 Creatine Kinase 38 CK-MB (CK-2) 1.3 CK-MB (CK-2) % Not Reportable Troponin I < 0.02 B-Natriuretic Peptide 58.9 Serum Total Protein 8.9 H Albumin 2.6 L Globulin 6.3 H Albumin/Globulin Ratio 0.4 L Urine Color Urine Appearance Urine pH Ur Specific [place] Urine Protein Urine Glucose (UA) Urine Ketones Urine Blood Urine Nitrite Urine Bilirubin Urine Urobilinogen Ur Leukocyte Esterase Urine RBC Urine WBC Ur Epithelial Cells Urine Bacteria Urine Yeast 10/27/16 10/27/16 18:10 21:29 WBC RBC Hgb Hct MCV MCH MCHC RDW Plt Count MPV Absolute Neuts (auto) Absolute Lymphs (auto) Absolute Monos (auto) Absolute Eos (auto) Neutrophils % Neutrophils % (Manual) Lymphocytes % Lymphocytes % (Manual) Monocytes % Monocytes % (Manual) Eosinophils % Basophils % Band Neutrophils Platelet Estimate Normal RBC Morphology PT INR PTT (SP) Sodium Potassium Chloride Carbon Dioxide Anion Gap BUN Creatinine BUN/Creatinine Ratio Random Glucose Serum Osmolality Calcium Magnesium Total Bilirubin AST ALT Alkaline Phosphatase Creatine Kinase 36 L CK-MB (CK-2) 1.8 CK-MB (CK-2) % Not Reportable Troponin I < 0.02 B-Natriuretic Peptide Serum Total Protein Albumin Globulin Albumin/Globulin Ratio Urine Color Yellow Urine Appearance Cloudy Urine pH 7.0 Ur Specific [place] 1.025 Urine Protein 100 H Urine Glucose (UA) Negative Urine Ketones Negative Urine Blood Moderate H Urine Nitrite Positive H Urine Bilirubin Negative Urine Urobilinogen 1.0 Ur Leukocyte Esterase Moderate H Urine RBC >50 H Urine WBC >50 H Ur Epithelial Cells 0-1 Urine Bacteria 4+ H Urine Yeast 4+ budding hest x-ray did actually does look somewhat improved compared to his previous. He does have significant effusions. EKG shows normal sinus rhythm at a rate of 95 bpm.there is a right bundle branch block that is old. QT interval is borderline. There is a question of a left posterior fascicular block however this may be lead placement issue. Departure - Departure Clinical Impression: Respiratory arrest Disposition: Discharge to Home or Self Care Condition: Fair Departure Forms: ED Discharge - Pt. Copy, Patient Portal Self Enrollment Diet: regular diet - g-tube feeds Activity: increase activity as tolerated Referrals: GENTRY ULRICH [Primary Care Provider] - 1-5 Days Home Medications: Ambulatory Orders ALPRAZolam [Xanax] 0.5 mg GT Q8HR PRN 10/08/16 Acetaminophen W/ Codeine [Tylenol w/Codeine 300-30 mg] 1 tab PO QID PRN Acetylcysteine 10 % INH BID PRN 10/08/16 Amiodarone HCl 200 mg GT BID 10/08/16 Aspirin [Aspirin EC Low Dose] 81 mg GT DAILY 10/08/16 Baclofen 10 mg GT QID 10/08/16 Bisacodyl 10 mg AK DAILY PRN 10/08/16 Bisacodyl 10 mg AK DELISA-OTH-DAY 10/08/16 Calcium Carbonate-Cholecalcife [Calcium 600 + D 600-200 mg-Unit] 1 tab GT BID Clopidogrel Bisulfate [Plavix] 75 mg GT DAILY 10/08/16 Diphenhydramine HCl 12.5 mg GT Q6HR PRN 10/08/16 Famotidine 20 mg GT BID 10/08/16 Hydromorphone HCl [Dilaudid-5] 1 mg GT Q4HR PRN 10/08/16 Ibuprofen [Goodsense Ibuprofen] 600 mg GT Q6HR 10/08/16 Ipratropium/Albuterol [Duoneb] 3 ml INH Q4HR 10/08/16 Pregabalin [Lyrica] 75 mg GT BID 10/08/16 Sennosides-Docusate Sodium [Senna/Docusate Sodium] 1 tab GT BID 10/08/16 Ascorbic Acid [Vitamin C] 500 mg GT BID 10/19/16 Balsam [place] Oil [Venelex] 1 applic TOP BID 10/19/16 Methocarbamol 750 mg PO QID 10/19/16 Nutritional Supplements [Arginaid] 1 teja PO BID 10/19/16 Polyvinyl Alcohol [Artificial Tears] 2 applic BOTH_EYES QID PRN 10/19/16 Additional Instructions: the patient is a 36-year-old -Thai male quadriplegic brought in after being coded at long-term care facility. it is thought that the patient went down after being turned on his right side where he could not breathe as well while he was receiving wound care. The patient has done well here. He has remained in normal sinus rhythm. Cardiac enzymes are negative. He is alert and pleasant. Laboratory work appears to be near baseline for the patient. He may have a small urinary tract infection. He was given a dose of Diflucan for budding yeast in the urine. Urine culture can be followed. No antibiotics are going to be dosed otherwise at this time. The patient has agreed to this plan. ER warnings were given for any worsening. Continue current medications and wound care otherwise. Consider turning the patient to the opposite side for wound care.
[2016-10-27 23:09] VITALS: BP 112/72
[2016-10-27 23:10] VITALS: TEMP 98.2
== END 2016-10-27 23:10 | disposition home or self-care (01) ==
LOC: ER 17:42
DX: R09.2 Respiratory arrest (principal); I45.10 Unspecified right bundle-branch block; Z99.11 Dependence on respirator [ventilator] status; G82.50 Quadriplegia, unspecified; I48.91 Unspecified atrial fibrillation; Z95.0 Presence of cardiac pacemaker; Z88.6 Allergy status to analgesic agent; Z79.899 Other long term (current) drug therapy; Z79.82 Long term (current) use of aspirin
CPT/HCPCS: 36415; 71010; 80053; 81001; 82550; 82553; 83735; 83880; 84484; 85025; 85610; 85730; 87086; 93005; 94002; 94640; J1170; J7620